=== PATIENT | male | born 1950 | race Caucasian/White ===

== ENCOUNTER 2018-03-07 09:48 | Day surgery (SDC) | payer BC ==
[~2018-03-07] VITALS: Ht 188 cm; Wt 106.6 kg
[~2018-03-07 09:48] MED LIST: ALTACE10 M1 PO; AMLODIPINE5 MG PO; ATORVASTATIN CA20 MG PO; BACTRIM DS1 TAB PO; BL ADULT ASA81 MG OR; BLOOD GLUCOSE TEST S SC; CIPROFLOXACN500 MG PO; FLEXERIL PO; GLIPIZIDE5 M2 PO; GLUCOPHAGE500 MG PO; GLUCOVANCE5 MG/500 M PO; HYDROCHLOROT25 MG PO; IBUPROFEN600 MG PO; JANUVIA100 MG PO; JANUVIA50 MG PO; KEFLEX500 MG PO; KENALOG-4040 MG/ML IC; LOPRESSOR 550 MG/TAB PO; MELOXICAM15 MG PO; METOPROL TAR50 MG PO; MULTAQ400 MG PO; NORVASC5 MG PO; PERCOCET 5/325M1 TAB PO; POLYMYXIN B/ OS; PRADAXA150 MG PO; PRAVASTATIN20 MG PO; PRAVASTATIN40 MG PO; STROMECTOL3 MG OR
[2018-03-07] MEDS ORDERED: TRULICITY0.75 MG/0. (10:52)
[2018-03-07 13:01] VITALS: BP 116/59
== END 2018-03-07 13:10 | disposition home or self-care (01) | DRG 951 ==
LOC: ENDO 09:48
PROVIDERS: ATTEND Surgery
PROC: 0DBH8ZX Excision of Cecum, Via Natural or Artificial Opening Endoscopic, Diagnostic (ICD-10-PCS; principal; 2018-03-07)
PROC: 0DBP8ZX Excision of Rectum, Via Natural or Artificial Opening Endoscopic, Diagnostic (ICD-10-PCS; 2018-03-07)
DX: Z12.11 Encounter for screening for malignant neoplasm of colon (principal); D12.8 Benign neoplasm of rectum; K63.5 Polyp of colon; K57.30 Diverticulosis of large intestine without perforation or abscess without bleeding; I48.91 Unspecified atrial fibrillation; I10 Essential (primary) hypertension; E78.00 Pure hypercholesterolemia, unspecified; E11.9 Type 2 diabetes mellitus without complications

== ENCOUNTER 2023-09-14 20:11 | Inpatient (IN) | payer MEDICARE ==
[2023-09-14] VITALS (13 sets, daily range): BP systolic 95–137; BP diastolic 57–80
[~2023-09-14] VITALS: Ht 188 cm; Wt 104.0 kg
[~2023-09-14 20:11] MED LIST changes: +TRULICITY0.75 MG/0.
[2023-09-14 21:24] LABS: BASO% 0.3 % (0-3); EOS% 0.7 % (0-8); HEMATOCRIT 46.6 % (39.0-50.0); HEMOGLOBIN 15.7 g/dl (14.0-18.0); IMMATURE GRANULOCYTES 0.6 % (0.0-5.0); LYMPH% 19.9 % (15-41); MEAN CELL VOLUME 87.4 fL CALC (80.0-100.0); MEAN CORPUSCULAR HGB 29.5 pG CALC (26.0-32.0); MEAN CORPUSCULAR HGB CONC 33.7 g/dL CAL (32.0-36.0); MONO% 5.7 % (2-13); NEUT# 14.12 thou/uL (1.82-7.42); NEUT% 72.8 % (42-76); RED BLOOD COUNT 5.33 mill/uL (4.70-6.10)
[2023-09-14 21:40] LABS: ALBUMIN 4.7 g/dL (3.2-5.0); ALKALINE PHOSPHATASE 77 u/l (38-126); ANION GAP 15 (6-22 (CALC)); BILIRUBIN, TOTAL 0.9 mg/dL (0.2-1.3); BUN 20 mg/dL (8-23); BUN/CREATININE RATIO 28 (12-20 (CALC)); CHLORIDE 100 mmol/l (95-108); CREATININE 0.7 mg/dL (0.7-1.3); GFR FOR AFR.AMER. > 60 ML/MIN (>=60 (CALC)); GFR OTHER RACES > 60 ML/MIN (>=60 (CALC)); POTASSIUM 3.7 mmol/l (3.5-5.1); SGOT/AST 24 u/l (19-48); SODIUM 137 mmol/l (137-146); TOTAL PROTEIN 7.8 g/dL (6.3-8.2)
--- NOTE | 2023-09-14 21:40 | NUR ---
CARDIZEM DRIP STARTED AT THIS TIME.
[2023-09-14] MEDS ORDERED: AMOX/K CLAV875 M1 PO (21:43)
[2023-09-14] MEDS ORDERED: NIACIN250 M1 PO (21:44)
[2023-09-14] MEDS ORDERED: FARXIGA10 MG PO (21:45)
[2023-09-14] MEDS ORDERED: XARELTO20 MG PO (21:47)
[2023-09-14] MEDS ORDERED: FLECAINIDE100 MG PO (21:48)
[2023-09-14] MEDS ORDERED: LISINOP/HCTZ1 TA1 PO (21:49)
[2023-09-14] MEDS ORDERED: TOPROL XL50 MG PO (21:50)
[2023-09-14] MEDS ORDERED: TAMSULOSIN0.4 MG PO (21:50)
[2023-09-14] MEDS ORDERED: GLYBURIDE/METFO1 TA2 PO (21:51)
[2023-09-14] MEDS ORDERED: TRESIBA100 UNIT/M SC (21:52)
[2023-09-14] MEDS ORDERED: OZEMPIC 8 MG/3M1 INJ (21:52)
--- NOTE | 2023-09-14 21:53 | NUR ---
MEDICATION REC COMPLETED AT THIS TIME. PATIENT PROVIDED RN WITH MEDICATION BOTTLES.
--- NOTE | 2023-09-14 22:00 | NUR ---
PATIENT CURRENTLY SR 99. CARDIZEM REMAINS AT 10 MG/HR
[2023-09-14 22:13] LABS: CARBON DIOXIDE 26 mmol/l (22-30)
--- NOTE | 2023-09-14 23:30 | NUR ---
PATIENT RESTING IN BED, MD AT BEDSIDE TO DISCUSS ADMISSION ORDERS.
[2023-09-15] VITALS (24 sets, daily range): BP systolic 85–147; BP diastolic 40–74
--- NOTE | 2023-09-15 | NUR ---
CARDIZEM TITRATED TO 5MG/HR PER MD ORDERS.
--- NOTE | 2023-09-15 00:49 | NUR ---
CARDIZEM DOWN TO 2MG/HR PER MD ORDERS.
--- NOTE | 2023-09-15 01:30 | NUR ---
PATIENT RESTING IN BED, NO APPARENT DISTRESS NOTED. AT BEDSIDE. PATIENT WAITING BED UPSTAIRS.
--- NOTE | 2023-09-15 02:40 | NUR ---
SERGO SALAZAR DC. PATIENT SR 80'S. PATIENT BECOMING HYPOTENSIVE ON DRIP. NOTIFIED MD AND DRIP STOPPED.
--- NOTE | 2023-09-15 02:45 | NUR ---
CALL TO ICU FOR REPORT. REPORT GIVEN TO Lakesha EDOUARD RN.
--- NOTE | 2023-09-15 03:00 | NUR ---
PATIENT ARRIVED ON UNIT VIA WHEELCHAIR ACCOMPANIED BY ER NURSE AND SIGNIFICANT OTHER. HE IS AMBULATORY WITH STEADY GAIT, NO ASSISTANCE NEEDED. VSS AT THIS TIME. PATIENT NOTED IN SINUS RHYTHM WITH HR IN THE 70S. ASSESSMENT COMPLETED (SEE INTERVENTIONS). NO ACUTE DISTRESS NOTED. HE DENIES ANY PAIN OR DISCOMFORT. HE IS EATIING AND DRINKING ADEQUATELY. WILL CONTINUE TO MONITOR FOR ANY RHYTHM CHANGES.
--- NOTE | 2023-09-15 03:00 | NUR ---
PER ER NURSE BLOOD CULTURES WERE DRAWN WHILE IN THE ER. WILL FOLLOW UP WITH LAB.
--- NOTE | 2023-09-15 03:00 | NUR ---
PATIENT REPORTS AZYTHROMYCIN THAT WAS REPORTED STARTED YESTERDAY NIGHT WAS NOT A CURRENT PRESCRIPTION. NOTIFIED Lakesha EDOUARD RN. PATIENT BLOOD CULTURES AND LACTIC ACID WERE DRAWN AT 2335 09/14/23. BLOOD CULTURES OR LACTIC ARE SHOWING PENDING COLLECTION. INFORMATION PASSED ON TO ACCEPTING ICU NURSE.
--- NOTE | 2023-09-15 03:10 | NUR ---
PATIENT TO ICU ROOM 6 VIA WHEELCHAIR. AT SIDE. CARE HANDED OVER TO Lakesha EDOUARD RN.
--- NOTE | 2023-09-15 04:00 | NUR ---
PATIENT RESTING COMFORTABLY WITH NO ACUTE DISTRESS NOTED AT THIS TIME. WILL CONTINUE TO MONITOR FOR ANY CHANGES IN RHYTHM.
--- NOTE | 2023-09-15 07:23 | NUR ---
REPORT GIVEN TO ONCOMING NURSE.
== END 2023-09-15 11:56 | disposition home or self-care (01) | DRG 310 ==
LOC: ED 20:11 → ED-I 21:21 → ED 21:21 → ED-I 22:51 → ED 22:58 → ICU 22:59
PROVIDERS: Family Medicine; ADMIT Internal Medicine; ATTEND Internal Medicine
DX: I48.91 Unspecified atrial fibrillation (principal); K04.7 Periapical abscess without sinus; I10 Essential (primary) hypertension; E11.65 Type 2 diabetes mellitus with hyperglycemia; G47.33 Obstructive sleep apnea (adult) (pediatric); Z79.84 Long term (current) use of oral hypoglycemic drugs; Z79.4 Long term (current) use of insulin; Z79.01 Long term (current) use of anticoagulants; Z87.891 Personal history of nicotine dependence